=== PATIENT | female | born 1990 | race Hispanic/Latino ===

== ENCOUNTER 2020-05-28 11:43 | Emergency (ER) | payer OTHER ==
[~2020-05-28] VITALS: Ht 162.6 cm; Wt 74.8 kg
--- NOTE | 2020-05-28 11:54 | Emergency Department Note ---
History of Present Illnes History of Present Illness Chief Complaint: left ankle pain s/p inversion while stepping off the curb History of Present Illness This is a 29 year old female. was doing well prior to this. Historian: Patient Arrival Mode: Car History limited by: condition of the patient Collar Separator Required: No Onset (how long ago): hour(s) (2) Location: left ankle Quality: sharp Radiation: Reports non-radiation Severity: moderate Onset quality: sudden Duration (how long): hour(s) (2) Timing of current episode: constant Progression: worsening Context: Reports trauma/injury; Denies recent illness, Denies recent surgery, Denies recent immobilization, Denies recent travel Relieving factors: none Exacerbating factors: movement Associated symptoms: Reports denies other symptoms Treatments prior to arrival: none Past Medical/Family History Physician Review I have reviewed the patient's past medical and family history. Any updates have been documented here. Past Medical History Recent Fever: No Clinical Suspicion of Infectio: No New/Unexplained Change in Ment: No Other Medical History: left ankle sprain Past Surgical History: None Social History Smoking Cessation: Never Smoker Alcohol Use: Social Any Illegal Drug Use: No TB Exposure/Symptoms: No Physically hurt or threatened: No Family History Family history of heart diseas: No Other Any Pre-Existing Lines (PICC,: No Is patient up to date on immun: No Review of Systems Review of Systems Constitutional: Reports no symptoms EENTM: Reports no symptoms Cardiovascular: Reports no symptoms Respiratory: Reports no symptoms Gastrointestinal: Reports no symptoms Genitourinary: Reports no symptoms Musculoskeletal: Reports as per HPI Integumentary: Reports no symptoms Neurological: Reports no symptoms Psychological: Reports no symptoms Endocrine: Reports no symptoms Hematological/Lymphatic: Reports no symptoms Review of other systems: All other systems negative Physical Exam Related Data Vital signs reviewed: Yes Physical Exam CONSTITUTIONAL Constitutional: Present well-developed, Present well-nourished HENT HENT: Present normocephalic, Present atraumatic, Present oropharynx clear/mois t, Present nose normal HENT L/R: Present left ext ear normal, Present right ext ear normal EYES Eyes: Reports PERRL, Reports conjunctivae normal NECK Neck: Present ROM normal PULMONARY Pulmonary: Present effort normal, Present breath sounds normal CARDIOVASCULAR Cardiovascular: Present regular rhythm, Present heart sounds normal, Present capillary refill normal, Present normal rate GASTROINTESTINAL Abdominal: Present soft, Present nontender, Present bowel sounds normal GENITOURINARY Genitourinary: Present exam deferred SKIN Skin: Present warm, Present dry MUSCULOSKELETAL Musculoskeletal: Present tenderness (left ankle tenderness, swelling, decrease farom, +nvi) NEUROLOGICAL Neurological: Present alert, Present oriented x 3, Present no gross motor or sensory deficits PSYCHOLOGICAL Psychological: Present mood/affect normal, Present judgement normal Results Imaging Imaging results reviewed: Yes Impressions LEFT ANKLE= +STS, NO FX , NO DISLOCATION Assessment & Plan Medical Decision Making MDM LEFT ANKLE SPRAIN Assessment & Plan Final Impression: (1) Left ankle sprain Depart Disposition: HOME, SELF-long-term Meds Active Scripts Prednisone (PREDNISONE) 20 Mg Tab, 60 MG PO DAILY PRN for MODERATE PAIN (4-6), #12 TAB take all 3 20 mg pills at once Prov:BENJAMIN ARNOLD 05/28/20 BENJAMIN ARNOLD May 28, 2020 11:54
[2020-05-28] MEDS ORDERED: IBUPROFEN 600 MG TAB PO STA (12:01)
[2020-05-28] MEDS ORDERED: IBUPROFEN 400 MG TAB ONE (12:37)
[2020-05-28] MEDS ORDERED: PREDNISONE20 MG PO (12:50)
--- NOTE | 2020-05-28 13:34 | Diagnostic Imaging Report ---
X-ray left ankle 3 views History: Fall Findings: Soft tissue swelling along the lateral malleolus and to a much less degree on the medial side. No acute fracture, subluxation. No radiopaque foreign body. Impression: As above. Signed by: Brenden Baez MD on 05/28/2020 1:31 PM
== END 2020-05-28 13:03 | disposition home or self-care (01) ==
LOC: FSED 11:52
DX: S93.402A Sprain of unspecified ligament of left ankle, initial encounter (principal); X50.1XXA Overexertion from prolonged static or awkward postures, initial encounter; Y93.01 Activity, walking, marching and hiking; Y92.480 Sidewalk as the place of occurrence of the external cause
CPT/HCPCS: 99284